=== PATIENT | female | born 1930 | race Caucasian/White ===

== ENCOUNTER 2016-11-29 10:08 | Emergency (ER) | payer MEDICARE, OTHER ==
[2016-11-29] MEDS ORDERED: Sodium Chloride 0.9% 10 ML Syringe FLUSH PRN (11:30)
[2016-11-29] MEDS ORDERED: HYDROmorphone 0.5 MG/0.5 ML Syringe IVPUSH ONE (11:34)
[2016-11-29] MEDS ORDERED: Sodium Chloride 0.9% 1,000 ML IV ONE (11:34)
--- NOTE | 2016-11-29 11:45 | EDM.PDOC ---
ED HPI GENERAL MEDICAL PROBLEM - General Chief Complaint: General Stated Complaint: Cold, purple feet Time Seen by Provider: 11/29/16 11:15 Source of Information: Reports: Patient, EMS, Family, RN Notes Reviewed, Other ( [employer] from alf present at bedside) History Limitations: Reports: Altered Mental Status - History of Present Illness INITIAL COMMENTS - FREE TEXT/NARRATIVE: 86 year old female with history of PAD presents via [facility] due to purple, cold feet. Pulses are absent by doppler. She has undergone IR intervention in the past with success. She is not currently on any blood thinners. The nursing staff reports that they noticed her symptoms this morning. The patient has dementia and is a poor historian. She does complain of lower extremity pain and back pain. She has chronic back pain and has received injections in the past at the pain clinic in [place]. Please see PMH as listed below. - Related Data Allergies Allergy/AdvReac Type Severity Reaction Status Date / Time amoxicillin Allergy Unknown Cannot Verified 02/14/16 20:51 Remember atenolol Allergy Unknown Cannot Verified 02/14/16 20:51 Remember buspirone Allergy Unknown Cannot Verified 02/14/16 20:51 Remember cefaclor Allergy Unknown Cannot Verified 02/14/16 20:51 Remember cefpodoxime Allergy Unknown Cannot Verified 11/29/16 10:23 Remember cefuroxime Allergy Unknown Cannot Verified 11/29/16 10:23 Remember cephalexin Allergy Unknown Cannot Verified 11/29/16 10:23 Remember clarithromycin Allergy Unknown Cannot Verified 11/29/16 10:23 Remember sulfamethoxazole Allergy Unknown Cannot Verified 11/29/16 10:23 Remember cefprozil Allergy Cannot Verified 11/29/16 10:23 Remember cinnamon Allergy Cannot Verified 11/29/16 10:23 Remember clavulanic acid Allergy Cannot Verified 11/29/16 10:23 [From Augmentin] Remember haloperidol [From Haldol] Allergy Cannot Verified 11/29/16 10:23 Remember iodine Allergy Rash Verified 11/29/16 10:23 latex Allergy Rash Verified 11/29/16 10:23 lorazepam [From Ativan] Allergy Cannot Verified 11/29/16 10:23 Remember omeprazole Allergy unknown Verified 11/29/16 10:23 prednisone Allergy unknown Verified 11/29/16 10:23 Home Meds: Home Meds Acetaminophen [Tylenol] 650 mg PO BID 02/14/16 [History] Albuterol [Proventil Neb Soln] 2.5 mg NEB Q4H PRN 02/14/16 [History] Aspirin 81 mg PO DAILY 02/14/16 [History] Multivitamin [Multivitamins] 1 tab PO DAILY 02/14/16 [History] Calcium Citrate/Vitamin D3 [Calcium Citrate - Vit D Tablet] 2 tab PO BID [History] Carvedilol 6.25 mg PO BID 07/26/16 [History] Cholecalciferol (Vitamin D3) [Vitamin D3] 1,000 units PO BID 07/26/16 [History] Loperamide HCl [Imodium A-D] 2 mg PO ASDIRECTED PRN 07/26/16 [History] Magnesium Oxide 500 mg PO DAILY 07/26/16 [History] Melatonin 6 mg PO BEDTIME 07/26/16 [History] Polyethylene Glycol 3350 [MiraLAX] 17 gm PO DAILY 07/26/16 [History] QUEtiapine [SEROquel] 150 mg PO BID 07/26/16 [History] Rivastigmine Tartrate [Rivastigmine] 3 mg PO BID 07/26/16 [History] Furosemide [Lasix] 40 mg PO DAILY 11/29/16 [History] risperiDONE [Risperdal] 3 mg PO BID 11/29/16 [History] Past Medical History HEENT History: Reports: Hard of Hearing Other HEENT History: wears bilat hearing aids, dysphagia Cardiovascular History: Reports: Afib, Heart Failure, High Cholesterol, Hypertension, Pacemaker, PVD, Other (See Below) Other Cardiovascular History: varicose vein surgery, edema Respiratory History: Reports: Asthma, COPD Other Respiratory History: seasonal allergies Gastrointestinal History: Reports: Chronic Constipation, GERD Genitourinary History: Reports: None UNSTACKER History: Reports: Other OB/BYN History: total hysterectomy Musculoskeletal History: Reports: Osteoarthritis, Osteoporosis, RA, Other (See Below) Other Musculoskeletal History: weakness, chronic pain Neurological History: Reports: Other (See Below) Other Neuro History: dementia Psychiatric History: Reports: Aggressive/Hostile Behaviors, Anxiety, Depression , Psychosis Other Psychiatric History: delirium, insomnia Endocrine/Metabolic History: Reports: None Hematologic History: Reports: None Immunologic History: Reports: None Oncologic (Cancer) History: Reports: Other (See Below) Other Oncologic History: skin 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) arm Other Dermatologic History: some kind of skin CA on left arm, history of pressure ulcer to ankle - Infectious Disease History Infectious Disease History: Reports: Chicken Pox - Past Surgical History HEENT Surgical History: Reports: Cataract Surgery, Tonsillectomy Cardiovascular Surgical History: Reports: Other (See Below) Female Surgical History: Reports: Hysterectomy Social & Family History - Family History Family Medical History: Noncontributory Cardiac: Reports: [place] Oncologic: Reports: Colon - Tobacco Use Smoking Status *Q: Never Smoker Years of Tobacco use: 40 Packs/Tins Daily: 1 Used Tobacco, but Quit: No Second Hand Smoke Exposure: No - Caffeine Use Caffeine Use: Reports: None - Alcohol Use Days Per Week of Alcohol Use: 0 Number of Drinks Per Day: 3 Total Drinks Per Week: 0 - Recreational Drug Use Recreational Drug Use: No - Living Situation & Occupation Living situation: Reports: , Extended Care Facility Occupation: Retired ED ROS GENERAL - Review of Systems Review Of Systems: See Below Respiratory: Reports: No Symptoms. Denies: Shortness of Breath Cardiovascular: Reports: Claudication. Denies: Chest Pain Musculoskeletal: Reports: Leg Pain Skin: Reports: Change in Color ED EXAM, GENERAL - Physical Exam Exam: See Below Exam Limited By: Altered Mental Status General Appearance: Alert, No Apparent Distress Respiratory/Chest: No Respiratory Distress, Lungs Clear, Normal Breath Sounds Cardiovascular: Regular Rate, Rhythm Extremities: Leg Pain, Other (bilateral feet are purple, cold, and pulses are absent via bedside doppler ultrasound. Lower extremities are cool to touch from mid-calf to toes. ) Neurological: Alert, Confused, Disoriented Course - Vital Signs Last Recorded V/S: Last Vital Signs Temp 97.9 F 11/29/16 10:16 Pulse 70 11/29/16 10:16 Resp 18 11/29/16 10:16 BP 126/55 L 11/29/16 10:16 Pulse Ox 94 L 11/29/16 10:16 - Orders/Labs/Meds Orders: Active Orders 24 hr Category Date Time Status Peripheral IV Care [RC] . DIRECTED Care 11/29/16 11:30 Active Sodium Chloride 0.9% [Normal Saline] 1,000 ml Med 11/29/16 11:34 Active IV ONETIME Sodium Chloride 0.9% [Saline Flush] Med 11/29/16 11:30 Active 10 ml FLUSH ASDIRECTED PRN Peripheral IV Insertion Adult [OM.PC] Stat Oth 11/29/16 11:30 Ordered Medication Orders Sodium Chloride (Normal Saline) 1,000 mls @ 75 mls/hr IV ONETIME ONE Stop: 11/30/16 00:53 Last Admin: 11/29/16 11:55 Dose: 75 mls/hr Sodium Chloride (Saline Flush) 10 ml FLUSH ASDIRECTED PRN PRN Reason: Keep Vein Open Last Admin: 11/29/16 11:56 Dose: 10 ml Labs: Laboratory Tests 11/29/16 11/29/16 11/29/16 Range/Units 12:14 12:14 12:14 WBC 10.44 H (3.98-10.04) K/mm3 RBC 4.61 (3.98-5.22) M/mm3 Hgb 14.4 (11.2-15.7) gm/L Hct 42.9 (34.1-44.9) % MCV 93.1 (79.4-94.8) fl MCH 31.2 (25.6-32.2) pg MCHC 33.6 (32.2-35.5) g/dl RDW Std Deviation 50.4 H (36.4-46.3) fL Plt Count 188 (182-369) K/mm3 MPV 10.0 (9.4-12.3) fl Neut % (Auto) 77.8 H (34.0-71.1) % Lymph % (Auto) 13.1 L (19.3-51.7) % Luna % (Auto) 8.7 (4.7-12.5) % Eos % (Auto) 0 L (0.7-5.8) Baso % (Auto) 0.2 (0.1-1.2) % Neut # (Auto) 8.12 H (1.56-6.13) K/mm3 Lymph # (Auto) 1.37 (1.18-3.74) K/mm3 Luna # (Auto) 0.91 H (0.24-0.36) K/mm3 Eos # (Auto) 0.00 L (0.04-0.36) K/mm3 Baso # (Auto) 0.02 (0.01-0.08) K/mm3 PT 11.4 (8.0-13.0) SECONDS INR 1.04 APTT 29 (22-36) SECONDS Sodium 143 (136-145) mEq/L Potassium 4.2 (3.5-5.1) mEq/L Chloride 105 (98-107) mEq/L Carbon Dioxide 26 (21-32) mEq/L Anion Gap 16.2 H (5-15) BUN 39 H (7-18) mg/dL Creatinine 1.2 H (0.55-1.02) mg/dL Est Cr Clr Drug Dosing 25.39 mL/min Estimated GFR (MDRD) 43 (>60) mL/min BUN/Creatinine Ratio 32.5 H (14-18) Glucose 188 H (83-115) mg/dL Calcium 9.4 (8.5-10.1) mg/dL Total Bilirubin 0.4 (0.2-1.0) mg/dL AST 104 H (15-37) U/L ALT 52 (14-59) U/L Alkaline Phosphatase 90 (46-116) U/L Total Protein 6.7 (6.4-8.2) g/dl Albumin 3.5 (3.4-5.0) g/dl Globulin 3.2 gm/dL Albumin/Globulin Ratio 1.1 (1-2) Meds: Medications Generic Name Dose Route Start Last Admin Trade Name Freq PRN Reason Stop Dose Admin Sodium Chloride 1,000 mls @ 75 mls/hr 11/29/16 11:34 11/29/16 11:55 Normal Saline IV 11/30/16 00:53 75 mls/hr ONETIME ONE Administration Sodium Chloride 10 ml 11/29/16 11:30 11/29/16 11:56 Saline Flush FLUSH 10 ml ASDIRECTED PRN Administration Keep Vein Open Discontinued Medications Generic Name Dose Route Start Last Admin Trade Name Freq PRN Reason Stop Dose Admin Hydromorphone HCl 0.5 mg 11/29/16 11:34 11/29/16 11:55 Dilaudid IVPUSH 11/29/16 11:35 0.5 mg ONETIME ONE Administration - Re-Assessments/Exams Free Text/Narrative Re-Assessment/Exam: 11/29/16 11:20 I spoke to the patient's daughter Nataly on the phone. Her and the daughter present at the bedside agree that they want the patient transferred to [place] for further treatment of her pulseless feet. They request [facility]. I called [facility] call and spoke to Dr. Rangel. He spoke to IR and they have accepted care of the patient. Plan will be for the patient to go through the emergency room with plan for possible IR intervention today. Will keep patient NPO. Labs are pending. IV placed with NS at 75ml/hr. Dilaudid ordered for pain. Family was notified and agree with plan of care. Departure - Departure Time of Disposition: 11:50 Disposition: DC/Tfer to [facility] 02 Condition: Poor Clinical Impression: PAD (peripheral artery disease), Claudication of both lower extremities - Discharge Information Forms: ED Department Discharge - My Orders Last 24 Hours: My Active Orders 11/29/16 11:30 Peripheral IV Care [RC] . DIRECTED Sodium Chloride 0.9% [Saline Flush] 10 ml FLUSH ASDIRECTED PRN Peripheral IV Insertion Adult [OM.PC] Stat 11/29/16 11:34 Sodium Chloride 0.9% [Normal Saline] 1,000 ml IV ONETIME - Assessment/Plan Last 24 Hours: My Active Orders 11/29/16 11:30 Peripheral IV Care [RC] . DIRECTED Sodium Chloride 0.9% [Saline Flush] 10 ml FLUSH ASDIRECTED PRN Peripheral IV Insertion Adult [OM.PC] Stat 11/29/16 11:34 Sodium Chloride 0.9% [Normal Saline] 1,000 ml IV ONETIME
[2016-11-29 13:51] VITALS: BP 123/52
== END 2016-11-29 13:30 ==
LOC: JD.ED 10:08
DX: I73.9 Peripheral vascular disease, unspecified (principal); I48.91 Unspecified atrial fibrillation; I11.0 Hypertensive heart disease with heart failure; I50.9 Heart failure, unspecified; E78.00 Pure hypercholesterolemia, unspecified; J45.909 Unspecified asthma, uncomplicated; J44.9 Chronic obstructive pulmonary disease, unspecified; K21.9 Gastro-esophageal reflux disease without esophagitis; M19.90 Unspecified osteoarthritis, unspecified site; M81.0 Age-related osteoporosis without current pathological fracture; M06.9 Rheumatoid arthritis, unspecified; F03.90 Unspecified dementia, unspecified severity, without behavioral disturbance, psychotic disturbance, mood disturbance, and anxiety; Z88.1 Allergy status to other antibiotic agents; Z88.8 Allergy status to other drugs, medicaments and biological substances; Z91.040 Latex allergy status; Z91.018 Allergy to other foods; Z79.899 Other long term (current) drug therapy; Z95.0 Presence of cardiac pacemaker; Z90.710 Acquired absence of both cervix and uterus; Z98.890 Other specified postprocedural states; Z85.828 Personal history of other malignant neoplasm of skin; Z79.82 Long term (current) use of aspirin; Z88.2 Allergy status to sulfonamides
CPT/HCPCS: 36415; 80053; 85025; 85610; 85730; 96361; 96374; 99285; J1170; J7040; J7050